=== PATIENT | male | born 2000 | race African-American/Black ===

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

== ENCOUNTER 2020-10-21 20:59 | Emergency (ER) | payer MEDICAID ==
[~2020-10-21] VITALS: Ht 188 cm; Wt 95.5 kg
[~2020-10-21 20:59] MED LIST changes: +CRUTCHES MC
[2020-10-21 21:08] VITALS: TEMP 98.9
[2020-10-21] MEDS ORDERED: BACTRIM DS 8001 TAB PO (21:49)
[2020-10-21 22:03] VITALS: BP 133/74; PULSE 82
== END 2020-10-21 22:03 | disposition home or self-care (01) ==
LOC: COL.ER 20:59
DX: L02.412 Cutaneous abscess of left axilla (principal)

== ENCOUNTER 2021-02-02 21:23 | Emergency (ER) | payer MEDICAID ==
[~2021-02-02] VITALS: Ht 188 cm; Wt 100.0 kg
[~2021-02-02 21:23] MED LIST changes: +BACTRIM DS 8001 TAB PO
[2021-02-02 21:37] VITALS: TEMP 97.6
[2021-02-02] MEDS ORDERED: CEPHALEXIN500 M1 PO (22:02)
[2021-02-02 22:15] VITALS: BP 114/80; PULSE 86
== END 2021-02-02 22:15 | disposition home or self-care (01) ==
LOC: COL.ER 21:23
DX: L02.412 Cutaneous abscess of left axilla (principal)

== ENCOUNTER 2021-06-29 11:11 | Emergency (ER) | payer MEDICAID ==
[~2021-06-29] VITALS: Ht 188 cm; Wt 100.0 kg
[~2021-06-29 11:11] MED LIST changes: +CEPHALEXIN500 M1 PO
[2021-06-29 11:26] VITALS: BP 134/65; PULSE 68; TEMP 98.1
[2021-06-29] MEDS ORDERED: DOXYCYCLINE HY100 MG PO (11:50)
== END 2021-06-29 12:02 | disposition home or self-care (01) ==
LOC: COL.ER 11:11
DX: L02.412 Cutaneous abscess of left axilla (principal); F17.200 Nicotine dependence, unspecified, uncomplicated